=== PATIENT | female | born 1955 | race Caucasian/White ===

== ENCOUNTER → 2020-02-09 13:53 | Outpatient (CLI) | payer MEDICARE, BC, SELFPAY ==
--- NOTE | 2020-02-09 14:01 | CT_ITS ---
PROCEDURE: CT SHOULDER LT WO CON CLINICAL HISTORY: evaluate for humeral head fx COMPARISON: Plain radiographs 02/08/2020 TECHNIQUE: Axial images obtained with sagittal and coronal reformats. 3D reconstruction images were also performed. All CT scans at the facility use one or more dose reduction, viz: automated exposure control, ma/kV adjustment per patient size (including targeted exams where dose is matched to indication, i.e. head), or iterative reconstruction technique. FINDINGS: There is a comminuted fracture of the proximal femur involving the surgical neck and head. There is mild distraction of fracture fragments. There is some inferior and medial displacement of the humeral head fracture fragments. There is intra-articular extension of the fracture. Hemarthrosis is noted. Remaining bony elements are intact. There is no disruption of the acromioclavicular joint. Incidental note is made of a 6 millimeter noncalcified pulmonary nodule in the left mid lung field. At a minimum correlation with current and previous chest x-rays if previous exams exist is recommended. Postcontrast CT of the thorax for additional assessment of the lung zhong should be considered if there are no previous exams available for comparison. IMPRESSION: Comminuted fracture proximal humerus with hemarthrosis. Incidental note of 6 millimeter noncalcified pulmonary nodule left lung field. Neoplasm is not excluded. Follow-up is recommended. Dictated by: Ghulam Rubin 02/09/2020 14:34 Electronically signed by Ghulam Rubin in [place] 02/09/2020 14:34
== END ==
PROVIDERS: PCP Family Medicine; Visit Provider Orthopaedic Surgery
DX: S42.202A Unspecified fracture of upper end of left humerus, initial encounter for closed fracture (principal)
CPT/HCPCS: 73200

== ENCOUNTER 2020-06-07 13:42 | Emergency (ER) | payer MEDICARE, BC, SELFPAY ==
--- NOTE | 2020-06-07 14:33 | HMH.EDUTC ---
[facility] [place] Clinical Impression: Contusion of rib on left side Qualifiers: Encounter type: initial encounter Qualified Code(s): S20.212A - Contusion of left front wall of thorax, initial encounter Osteoporosis Qualifiers: Osteoporosis type: unspecified Presence of current pathological fracture: without current pathological fracture Qualified Code(s): M81.0 - Age-related osteoporosis without current pathological fracture Disposition: Home, Self-Care Condition on Discharge: Good Instructions: DI for Rib Contusion Additional Instructions: F/U with PCP regarding osteoporosis Referrals: PCP,No [Primary Care Provider] - Time of Disposition: 15:24 Medical Decision Making - Sid Inquiry Pt receiving controlled substance: No Vital Signs: 06/07/20 14:34 Temperature 98.2 F Temperature Source Oral Pulse Rate [Right Brachial] 68 Respiratory Rate 20 Blood Pressure [Right Arm] 124/69 Blood Pressure Mean [Right Arm] 87 Blood Pressure Source [Right Arm] Automatic Cuff Blood Pressure Position [Right Arm] Sitting 02 Sat by Pulse Oximetry 100 Oxygen Delivery Method Room Air Orders (Tests/Meds): ORDERS Category Date Time Status XR ribs LT min 3V w CXR1V Stat Exams 06/07/20 14:37 Taken - Radiology Data #1 Image(s): Chest Image Reviewed: Yes I have reviewed radiologist's interpretation Preliminary Findings: Normal/NAD, No Fracture Seen [facility] [place] - General Stated complaint: AO 05/31/17 fell/rib pain Time Seen by Provider: 06/07/20 14:33 - History of Present Illness Provider Complaint: Patient fell on 05/31/20 injuring left side. Has pain and bruising to left elbow, left ribs, left hip and left knee. Had humeral fracture with surgery in February, so ortho evaluated other areas yesterday but stated they did not evaluate ribs. Onset (ago): week(s) (1) Location: chest Radiation: non-radiation Relieving factors: none Exacerbating factors: none Associated symptoms: denies other symptoms Treatments prior to arrival: none - Related Data Home Medications Medication Instructions Recorded Confirmed Levothyroxine Sodium [Synthroid 125 mcg PO DAILY 02/08/20 02/09/20 125mcg (0.125mg) tablet] Previous Rx's Medication Instructions Recorded Ibuprofen [Ibuprofen 600mg Tab] 600 mg PO Q6HP PRN #20 tab 04/02/20 Allergies Allergy/AdvReac Type Severity Reaction Status Date / Time No Known Allergies Allergy Unverified 02/09/20 13:11 [facility] History - Hepatitis A Screen Attestation statement:: This patient has been screened for Hepatitis A risk factors. I have reviewed the patient's past medical history: Yes Other Medical History: Reports: Hypothyroidism Laterality Cases: Bilateral: Other (BL legs over 20 years ago.) Other Surgeries: Yes: Colonoscopy - Social History Smoking Status: Never smoker Alcohol Intake: never Occupational Status: retired Family Hx:: Diabetes ROS Obtained: Yes All systems reviewed & no additional complaints - Respiratory Respiratory: Yes as per HPI, Yes pain on inspiration Physical Exam - General General appearance: alert, in no apparent distress - Head Head exam: atraumatic, normocephalic, normal inspection - Eye Eye exam: Present: normal appearance, PERRL, EOMI - ENT ENT exam: Present: normal exam, normal oropharynx, mucous membranes moist, TM's normal bilaterally, normal external ear exam - Neck Neck exam: Present: normal inspection, full ROM, trachea midline. Absent: meningismus, lymphadenopathy - Chest Chest inspection: Present: normal inspection, symmetric chest wall rise, tenderness (left chest wall) - Respiratory Respiratory exam: Present: normal lung sounds bilaterally. Absent: respiratory distress - Cardiovascular Cardiovascular exam: Present: regular rate, normal rhythm. Absent: JVD - Extremities Exam Extremities exam: Present: normal inspection, full ROM, normal capillary refill, other (bruising left elbow, knee, hip).
[2020-06-07 14:34] VITALS: BP 124/69; PULSE 68; RESP 20; TEMP 36.8; O2SAT 100; BMI 27.0
--- NOTE | 2020-06-07 14:37 | XR_ITS ---
PROCEDURE: XR RIBS LT MIN 3V W CXR1V CLINICAL INDICATION: Left rib pain s/p fall 05/31 COMPARISON: No exams were available for comparison FINDINGS: There is diffuse bony demineralization, which limits the diagnostic sensitivity of the exam. No displaced left rib fracture is identified. There is an old united fracture of the proximal left humerus status post ORIF. The lungs are hyperinflated, compatible with COPD. Diffuse chronic appearing mildly increased interstitial markings are seen in both lungs. There is no demonstrated consolidation or pleural effusion. There is a borderline/mild cardiomegaly. Mildly prominent peripheral pulmonary vascular markings. IMPRESSION: 1.Osteoporosis. No displaced left rib fracture is identified. 2. Possible COPD. Dictated by: Shania Lucas 06/07/2020 15:07 Electronically signed by Shania Lucas in [place] 06/07/2020 15:07
[2020-06-07 15:30] VITALS: BP 124/69; PULSE 68; RESP 20; TEMP 36.8; O2SAT 100
== END 2020-06-07 15:35 | disposition home or self-care (01) ==
PROVIDERS: Emergency Provider Physician Assistant
DX: S20.212A Contusion of left front wall of thorax, initial encounter (principal); W01.0XXA Fall on same level from slipping, tripping and stumbling without subsequent striking against object, initial encounter; Y92.019 Unspecified place in single-family (private) house as the place of occurrence of the external cause; M81.0 Age-related osteoporosis without current pathological fracture; E03.9 Hypothyroidism, unspecified; Z79.899 Other long term (current) drug therapy
CPT/HCPCS: 71101; 99201

== ENCOUNTER 2020-08-26 11:00 | Outpatient (RCR) | payer MEDICARE, BC, SELFPAY | END 2020-08-26 11:05 | disposition home or self-care (01) | LOC: OT 11:00 | PROVIDERS: PCP Family Medicine; Visit Provider Orthopaedic Surgery | DX: S42.202D Unspecified fracture of upper end of left humerus, subsequent encounter for fracture with routine healing (principal) | CPT/HCPCS: 97014; 97110; 97140; 97164; 97166; 97530; G0283 ==

== ENCOUNTER 2021-03-14 12:12 | Emergency (ER) | payer MEDICARE, BC, SELFPAY ==
[2021-03-14 12:40] VITALS: BP 106/73; PULSE 71; RESP 21; TEMP 36.9; O2SAT 100; BMI 25.9
--- NOTE | 2021-03-14 12:40 | HMH.EDUTC ---
[facility] [place] Disposition Clinical Impression: Rib pain on right side Disposition: Home, Self-Care Condition on Discharge: Good Instructions: DI for Rib Fracture Prescriptions: Lidocaine [Lidoderm 5% transdermal patch] 1 each TP Q24H 15 Days #15 adh..patch Transmission Status: Pending to [facility] Naproxen Sodium [Naproxen ER 500mg Tab] 500 mg PO BID 10 Days #30 tab Transmission Status: Pending to [facility] Referrals: Sheyla Angeles [Primary Care Provider] - Time of Disposition: 14:34 Medical Decision Making - Sid Inquiry Pt receiving controlled substance: No Vital Signs: 03/14/21 12:40 Temperature 98.4 F Temperature Source Oral Pulse Rate [Left Brachial] 71 Respiratory Rate 21 Blood Pressure [Left Arm] 106/73 L Blood Pressure Mean [Left Arm] 84 Blood Pressure Source [Left Arm] Automatic Cuff Blood Pressure Position [Left Arm] Sitting 02 Sat by Pulse Oximetry 100 Oxygen Delivery Method Room Air Orders (Tests/Meds): ORDERS Category Date Time Status Acute abdomen XR series [XR acute abdomen series] Stat Exams 03/14/21 12:52 Taken XR ribs RT 2V Stat Exams 03/14/21 12:51 Taken - Radiology Data #1 Image(s): Chest Image Reviewed: Yes I reviewed the patient's radiology image Preliminary Findings: Abnormal (possible non displaced fracture) #2 Image(s): Abdomen Image Reviewed: Yes I reviewed the patient's radiology image Preliminary Findings: Normal/NAD (no free air) [facility] [place] HPI - General Stated complaint: Fell 5 pain on right lower side Time Seen by Provider: 03/14/21 12:40 - History of Present Illness Provider Complaint: Patient was gardening 03/08 when she misstepped and fell on her right side. She states she fell flat onto the ground and did not strike an edge, etc. She hit her head rather hard but did not lose consciousness. Initially, that was her focus. As the week has gone on, she has had persistent pain in her right side. She does not actually recall striking her right side on anything. She has not had bruising or swelling. She denies hematuria. She has had normal bowel movements. Certain movements are painful. It is worse when she lays on her right side. Better if she lays on her left side. Motrin has not eased the pain. Onset (ago): day(s) (6) Location: chest, abdomen Radiation: non-radiation Severity: moderate Severity scale (1-10): 7 Quality: aching, constant Relieving factors: immobilization Exacerbating factors: movement Associated symptoms: denies other symptoms Treatments prior to arrival: NSAID - Related Data Home Medications Medication Instructions Recorded Confirmed Levothyroxine Sodium [Synthroid 125 mcg PO DAILY 02/08/20 03/14/21 125mcg (0.125mg) tablet] Previous Rx's Medication Instructions Recorded Lidocaine [Lidoderm 5% transdermal 1 each TP Q24H 15 Days #15 03/14/21 patch] adh..patch Naproxen Sodium [Naproxen ER 500mg 500 mg PO BID 10 Days #30 tab 03/14/21 Tab] Allergies Allergy/AdvReac Type Severity Reaction Status Date / Time No Known Allergies Allergy Unverified 02/09/20 13:11 [facility] History - Hepatitis A Screen Attestation statement:: This patient has been screened for Hepatitis A risk factors. I have reviewed the patient's past medical history: Yes Other Medical History: Reports: Hypothyroidism Laterality Cases: Bilateral: Other Other Surgeries: Yes: Colonoscopy - Social History Smoking Status: Never smoker Alcohol Intake: never Occupational Status: other Family Hx:: Diabetes ROS Obtained: Yes All systems reviewed & no additional complaints - Gastrointestinal Gastrointestingal: Reports: as per HPI - Musculoskeletal Musculoskeletal: Reports as per HPI Physical Exam - General General appearance: alert, in no apparent distress - Head Head exam: normocephalic - Eye Eye exam: Present: PERRL - ENT ENT exam: Present: normal oropharynx - Neck Neck exam: Present:
--- NOTE | 2021-03-14 12:51 | XR_ITS ---
PROCEDURE: XR RIBS RT 2V CLINICAL INDICATION: fall Posttraumatic pain COMPARISON: Chest x-ray 03/14/2021 FINDINGS: Minimally displaced fracture is noted on the frontal view of the chest not well delineated on the rib detail films likely due to positioning. No other abnormalities are evident. IMPRESSION: Possible right 7th rib fracture Dictated by: Kenyon Moreira MD 03/14/2021 14:34 Kenyon Moreira MD in [place] 03/14/2021 14:34
--- NOTE | 2021-03-14 12:52 | XR_ITS ---
PROCEDURE: XR ACUTE ABDOMEN SERIES CLINICAL INDICATION: fall Posttraumatic pain, right-sided pain COMPARISON: CR XR RIBS RT 2V from 03/14/2021 FINDINGS: A frontal view of the chest shows a minimally offset rib fracture involving the right 7th rib laterally. No evidence of pneumothorax. Prior ORIF left proximal humerus. Upright and supine views of the abdomen shows a nonspecific bowel gas pattern. No intestinal obstruction or free air. Other findings:None. IMPRESSION: Minimally displaced right 7th rib fracture otherwise negative Dictated by: Kenyon Moreira MD 03/14/2021 14:32 Kenyon Moreira MD in [place] 03/14/2021 14:32
[2021-03-14 14:38] VITALS: BP 106/73; PULSE 71; RESP 21; TEMP 36.9; O2SAT 100
== END 2021-03-14 14:40 | disposition home or self-care (01) ==
PROVIDERS: Emergency Provider Physician Assistant; PCP Family Medicine
DX: R07.81 Pleurodynia (principal); W01.0XXA Fall on same level from slipping, tripping and stumbling without subsequent striking against object, initial encounter; Y92.017 Garden or yard in single-family (private) house as the place of occurrence of the external cause; E03.9 Hypothyroidism, unspecified
CPT/HCPCS: G0463; 71100; 74021; 99202

== ENCOUNTER → 2021-05-27 14:07 | Outpatient (POV) | payer MEDICARE, BC, SELFPAY | PROVIDERS: Visit Provider Dermatology | DX: Z00.00 Encounter for general adult medical examination without abnormal findings (principal) ==

== ENCOUNTER 2021-07-20 11:17 | Emergency (ER) | payer MEDICARE, BC, SELFPAY ==
[2021-07-20 11:18] VITALS: BP 115/59; PULSE 82; RESP 18; TEMP 36.8; O2SAT 96; BMI 26.4
--- NOTE | 2021-07-20 11:31 | HMH.EDGENADL ---
ED Disposition Clinical Impression: Diarrhea Qualifiers: Diarrhea type: presumed infectious Qualified Code(s): R19.7 - Diarrhea, unspecified Disposition: Home, Self-Care Condition on Discharge: Fair Instructions: DI for Diarrhea and Traveler's Diarrhea -- Adult, DI for Nausea -- Adult Additional Instructions: Cipro as prescribed. Imodium for diarrhea. Tylenol for any pain or fever. Follow-up with primary care provider if not improved in 2 to 3 days. Rest and drink plenty of fluids. Return to the emergency department if worsening abdominal pain, persistent vomiting, fever over 101 degrees, passing large amounts of blood in stool. Prescriptions: Ciprofloxacin HCl [Cipro 500mg Tab] 500 mg PO BID #20 tab [facility] Loperamide HCl [Loperamide] 2 mg PO TIDP PRN #10 tab PRN Reason: Diarrhea Transmission Status: Pending to [facility] Referrals: Fide Angeles PA [Primary Care Provider] - - Critical Care Critical Care Time: No Attestation: On , the high probability of a clinically significant, sudden or life threatening deterioration of the following system(s) required my full and direct attention, intervention and personal management. The time I documented below is in addition to time spent performing reported procedures but includes the following listed in this critical care notation. Medical Decision Making - Sid Inquiry Pt receiving controlled substance: No (patient refused) Sid was queried for this patient: Yes Risks and benefits of using a controlled substance: were not discussed with pt by me Vital Signs: 07/20/21 11:18 Temperature 98.3 F Temperature Source Oral Pulse Rate [Left Radial] 82 Respiratory Rate 18 Blood Pressure [Left Arm] 115/59 L Blood Pressure Mean [Left Arm] 77 Blood Pressure Source [Left Arm] Automatic Cuff Blood Pressure Position [Left Arm] Supine 02 Sat by Pulse Oximetry 96 Oxygen Delivery Method Room Air - Lab Data Lab Results 07/20/21 11:30: WBC 9.0, RBC 5.25, Hgb 15.9, Hct 47.8 H, MCV 91.0, MCH 30.4, MCHC 33.4, RDW 11.9, Plt Count 286, MPV 7.0 L, Neut % (Auto) 66.6, Lymph % (Auto) 21.0, Storey % (Auto) 10.6 H, Eos % (Auto) 1.2, Baso % (Auto) 0.5, Neut # (Auto) 6.0, Lymph # (Auto) 1.9, Storey # (Auto) 1.0, Eos # (Auto) 0.1, Baso # (Auto) 0.1 07/20/21 11:30: Sodium 137, Potassium 4.0, Chloride 100, Carbon Dioxide 25, Anion Gap 16.0 H, BUN 21 H, Creatinine 0.60, Estimated Creat Clear 74, Estimated GFR 100, Est GFR ( Amer) 121, Glucose 99, Calcium 9.1, Total Bilirubin 1.0, AST 26, ALT 18, Alkaline Phosphatase 119, Total Protein 7.7, Albumin 4.3, Globulin 3.4 H, Albumin/Globulin Ratio 1.3 07/20/21 11:30: SARS-CoV-2 (PCR) Not detected, Influenza A Untype (PCR) Not detected, Influenza Type B (PCR) Not detected 07/20/21 13:34: Stl Aeromonas (PCR) Not detected, Stl C. cayetanensis PCR Not detected, Stool Rotavirus (PCR) Not detected, Stl Adenov F 40/41 PCR Not detected, Stool Astrovirus (PCR) Not detected, Stool Campylobacter PCR Not detected, Stl C.difficile Tox PCR Not detected, Stool Cryptosporidium PCR Not detected, Stl E.coli Shiga Tox PCR Not detected, Stool E coli O157 PCR Not detected, Stl Enterotoxigenic E PCR Not detected, Stool EPEC (PCR) Not detected, Stool EAEC (PCR) Not detected, Stl E. histolytica PCR Not detected, Stool Giardia Lamblia PCR Not detected, Stool Salmonella PCR Not detected, Stool Sapovirus (PCR) Not detected, Stl P. shigelloides PCR Not detected, Stl Shigella/EIEC PCR Not detected, St Y.enterocolitica PCR Not detected, Stool Vibrio (PCR) Not detected, Stl Vibrio cholerae PCR Not detected, Stl Norovirus GI/GII PCR Not detected 07/20/21 13:34: Stool Occult Blood Positive A Result diagrams: 07/20/21 11:30 07/20/21 11:30 Orders (Tests/Meds): ED MEDICATIONS Discontinued Medications Generic Name Dose Route Start Last Admin Trade Name Freq PRN Reason Stop Dose Admin Sodium Chloride 1,000
[2021-07-20 11:40] LABS: Coronavirus 19, PCR Not Detected (NotDetected); Influenza A, PCR Not Detected (NotDetected); Influenza B, PCR Not Detected (NotDetected)
[2021-07-20 11:52] LABS: Basophils # 0.1 K/mm3 (0-0.2); Basophils % 0.5 % (0.1-2.0); Eosinophils # 0.1 K/mm3 (0.0-0.4); Eosinophils % 1.2 % (0.1-12.0); Hematocrit 47.8 % (37.0-47.0); Hemoglobin 15.9 g/dL (12.2-16.2); Lymphocytes # 1.9 K/mm3 (0.7-4.5); Mean Corpuscular HGB Conc 33.4 g/dL (31.8-35.4); Mean Corpuscular Hemoglobin 30.4 pg (27.0-31.2); Monocytes % 10.6 % (1.7-9.3); Neutrophils % 66.6 % (37.0-80.0); Platelet Count 286 K/mm3 (142-424); Red Blood Count 5.25 M/mm3 (4.20-5.40); Red Cell Distribution Width 11.9 % (11.5-17.5)
[2021-07-20 11:54] LABS: Chloride 100 mmol/L (98-107); Sodium 137 mmol/L (136-145)
[2021-07-20 11:57] LABS: Alanine Aminotransferase 18 U/L (12-78); Albumin Level 4.3 g/dl (3.5-5.0); Albumin/Globulin Ratio 1.3 (1.1-1.8); Alkaline Phosphatase 119 U/L (38-126); Aspartate Amino Transferase 26 U/L (14-36); Blood Urea Nitrogen 21 mg/dl (7-17); Carbon Dioxide 25 mmol/L (22.0-30.0); Creatinine Clearance Estimated 74 mL/min (50-200); Estimated Glomerular Filt Rate 100 ml/min (>60); GFR (African American) 121 ML/MIN (>60); Globulin 3.4 g/dL (1.3-3.2); Total Protein,Serum 7.7 g/dl (6.3-8.2)
[2021-07-20 11:58] LABS: Calcium 9.1 mg/dl (8.4-10.2); Glucose 99 mg/dl (74-100)
--- NOTE | 2021-07-20 12:16 | PC.NURSE ---
Pt has refused to have a CT scan. Pt stated to rad It's just diarrhea. I don't want a CT .
[2021-07-20 13:40] LABS: Adenovirus F 40/41, stool Not Detected (NotDetected); Astrovirus Not Detected (NotDetected); Campylobacter Not Detected (NotDetected); Clostridium Difficile A/B, PCR Not Detected (NotDetected); Cryptosporidium Not Detected (NotDetected); Cyclospora Cayetanesis Not Detected (NotDetected); Entamoeba histolytica Not Detected (NotDetected); Enteroaggregative E coli Not Detected (NotDetected); Enteropathogenic E coli Not Detected (NotDetected); Enterotoxigenic E coli Not Detected (NotDetected); Giardia lamblia Not Detected (NotDetected); Norovirus Not Detected (NotDetected); Plesimonas Shigalloides, PCR Not Detected (NotDetected); Rotavirus A Not Detected (NotDetected); Salmonella, PCR Not Detected (NotDetected); Sapovirus Not Detected (NotDetected); Shiga-like toxin E coli Not Detected (NotDetected); Shigella Enterovasive E coli Not Detected (NotDetected); Vibrio Cholerae Not Detected (NotDetected); Vibrio, PCR Not Detected (NotDetected); Yersinia Entercolitica, PCR Not Detected (NotDetected)
--- NOTE | 2021-07-20 13:42 | PC.NURSE ---
diarrhea sample sent to lab.
[2021-07-20 13:49] LABS: Occult Blood,Stool Positive (Negative)
[2021-07-20 16:23] VITALS: BP 128/73; PULSE 93; RESP 16; TEMP 36.9; O2SAT 100
== END 2021-07-20 16:24 | disposition home or self-care (01) ==
PROVIDERS: Emergency Provider Emergency Medicine; PCP Physician Assistant Medical
DX: R19.7 Diarrhea, unspecified (principal); R11.2 Nausea with vomiting, unspecified; E03.9 Hypothyroidism, unspecified; Z20.822 Contact with and (suspected) exposure to COVID-19
CPT/HCPCS: 80053; 82272; 85025; 87506; 96365; 96375; 99283; C9803; G0328; J2405; U0003; U0005

== ENCOUNTER 2025-03-19 09:54 | Day surgery (SDC) | payer MEDICARE, SELFPAY ==
[2025-03-19 10:42] VITALS: BMI 25.1
[2025-03-19 10:52] VITALS: BP 136/68; PULSE 59; RESP 18; TEMP 36.6; O2SAT 100
[2025-03-19] MEDS: LACTATED RINGERS 1000ML 1,000 ML 50 ML IV (10:52)
--- NOTE | 2025-03-19 10:57 | ECG_ITS ---
APPROVED REPORT Exam: Resting ECG HR:58 bpm ECG Measurements Heart Rate 58 AXES KS 170 P 12 QRSd 102 QRS 87 QT 440 T 85 QTc 436 Conclusion SINUS BRADYCARDIA WITH OCCASIONAL SUPRAVENTRICULAR PREMATURE COMPLEXES BORDERLINE ECG UNCONFIRMED REPORT Electronically signed by : Dagoberto Paul MD 03/19/2025 16:48:04
--- NOTE | 2025-03-19 11:00 | SUR.PREOP ---
HR noted as irregular during assessment, EKG obtained per Christelle Mcbride CRNA.
--- NOTE | 2025-03-19 11:27 | EXP.HP ---
History of Present Illness *Admission Date: 03/19/25 *Reason for visit:: Change in bowel habits *History of present illness: Mrs. Pyle is a 69-year-old female who is here for diagnostic colonoscopy secondary to a change in bowel habits. The examination is deemed medically necessary for diagnostic colonoscopy. The patient has been seen, interviewed and examined prior to the procedure by both myself and the anesthesia provider. [facility] Disclaimer: The information contained in this section may have been updated after the patient was seen, as this information can be updated by other users. Medical History (Updated 03/19/25 @ 10:50 by Stacia Singh RN) Osteoporosis History of right shoulder fracture Hypothyroid Surgical History (Updated 03/19/25 @ 10:49 by Stacia Singh RN) History of colonoscopy Social History Smoking Status: Never smoker alcohol intake: never current occupational status: other Travel in the last 8 weeks?: None Have you lived/traveled outside [place] in past 30 days?: No Contact w/someone who lives/traveled outside US past 30 days?: No Exposure to someone with infectious disease in past 14 days?: No Do you have a fever (greater than 100.4 F or 38 C)?: No Have you tested positive for COVID-19?: No Exposed to someone with COVID-19 in past 14 days?: No Do you have a sore throat?: No Do you have a cough?: No Do you have any weakness?: No Do you have any diarrhea?: No Are you experiencing any unusual bleeding?: No Do you have any muscle aches/pain?: No Do you have any abdominal pain?: No Are you experiencing loss of taste or smell?: No Other Medical History Have you received the Flu Vaccine for this season: No Have you received the Pneumonia Vaccine: No Review of Systems Review of Systems Review of systems (narrative): Negative *Cardiovascular Comments: Negative *Gastrointestinal Comments: Negative *Genitourinary Comments: Negative *Musculoskeletal Comments: Negative *Neurologic Comments: Negative Meds Home Medications and Allergies Home Medications ?Medication ?Instructions ?Recorded ?Confirmed ?Type levothyroxine 100 mcg capsule 100 mcg PO DAILY 12/13/24 03/19/25 History New Prescriptions to Start Prescriptions: Allergies Allergy/AdvReac Type Severity Reaction Status Date / Time No Known Allergies Allergy Verified 03/19/25 10:46 Exam Data for Last 24 hours Vital signs and Labs for Last 24 Hours: Temp Pulse Resp BP Pulse Ox O2 Del Method 97.9 F 59 L 18 136/68 100 Room Air 03/19/25 10:52 03/19/25 10:52 03/19/25 10:52 03/19/25 10:52 03/19/25 10:52 03/19/25 10:52 I & O for Last 24 hours: Intake & Output 03/16/25 03/17/25 03/18/25 03/19/25 23:59 23:59 23:59 23:59 Weight 180 lb *Routine HEENT Exam Head: Present normocephalic Eye: Present EOMI and PERRL ENT: Present mucous membranes moist *Routine Neck Exam Neck: Present supple *Routine Respiratory Exam Respiratory: Present CTA bilaterally *Routine Cardiovascular Exam Cardiovascular: Present RRR *Routine Abdominal Exam Abdominal: Present soft and normoactive bowel sounds; Absent tenderness *Routine Rectal Exam Rectal:: deferred *Routine Genitalia Exam Genitalia:: deferred *Routine Extremities Exam Extremities: Absent cyanosis, clubbing or edema *Routine Skin Exam Skin: Present warm; Absent rash *Routine Neurological Exam Neurological: Present alert and oriented X3 Assessment and Plan *Assessment and plan (1) Change in bowel habits: Status: Acute Category: Medical Code(s): R19.4 - Change in bowel habit (2) Constipation: Status: Acute Category: Medical Code(s): K59.00 - Constipation, unspecified (3) Flatulence: Status: Acute Category: Medical Code(s): R14.3 - Flatulence Plan A/P: 1. Change in bowel habits with incomplete defecation/constipation is the preprocedural diagnosis. The patient will be anesthetized/sedated using MAC sedation. The patient has been seen and examined. Cardiac and lung assessment prior to the examination is stable. Proceed with planned diagnostic colonoscopy.
--- NOTE | 2025-03-19 11:39 | P.PCN_ITS ---
[facility] Procedure Note Date: 03/19/25 Time: 11:57 Procedure Note:: Colonoscopy Procedure Report: Colonoscopy with cold snare polypectomy Endoscopist: Wilberto Isbell II, MD Referring physician: Jared Devries MD Date of Procedure: March 19, 2025 Equipment: Olympus 190 variable stiffness pediatric colonoscope Sedation: MAC sedation Indication: Mrs. Pyle is a 69-year-old female who is here for diagnostic colonoscopy secondary to a change in bowel habits. Last fall she developed more obstipation with incomplete defecation. She started skipping days without a bowel movement. She has been taking some [id number] supplements including tart jackson juice capsules, tumeric, calcium and magnesium and stopped these supplements but still did not have improvement of her bowel movements. She reports no abdominal pain, rectal bleeding, weight loss or family history of colon cancer. Her last colonoscopy was 12 or 13 years ago. Procedure: Prior to the procedure, a history and physical exam was performed, and patient's medications and allergies were reviewed. The risks, benefits and alternatives of the sedation and procedure were discussed with the patient. All questions were answered and informed consent was obtained. The patient was brought to the procedure room. Patient identification and proposed procedure were verified by the physician and the nurse. The patient was placed in a left lateral decubitus position and the scope was passed under direct vision. Throughout the procedure, the patient's blood pressure, pulse, and oxygen saturations were monitored continuously. The colonoscopy was accomplished without difficulty. The patient tolerated the procedure well. Findings: On digital rectal examination there was normal rectal tone. There were no external hemorrhoids. The colonoscope was introduced through the anal canal to the rectum and advanced to the cecum. The ileocecal valve and appendiceal orifice were identified. The scope was advanced a short distance into the ileum which appeared grossly normal. The scope was then withdrawn into the colon. There were 2 polyps (ascending x 1 (3 to 4 mm) and rectosigmoid x 1 (6 mm)). Both of these were removed via cold snare polypectomy. The remaining cecum, ascending and transverse colon and mucosa were grossly normal. There were extensively scattered [place] diverticuli throughout the descending and sigmoid colon (LEFT colon). The rectum itself was normal. Upon retroflexion within the rectum there were grade 2 internal hemorrhoids. The preparation was excellent throughout with Waka Preparation Score of 9. The cecal time was 14 minutes. Impression: 1. Colonic polyps x 2 2. Extensive left-sided diverticulosis 3. Grade 2 internal hemorrhoids Plan: I will follow-up the polyp histology and recommend repeat surveillance colonoscopy again in 7 years if the polyps are adenomatous. I would encourage continuation of the fiber bowel regimen (combined MiraLAX plus Citrucel daily) on a long-term daily maintenance basis.
--- NOTE | 2025-03-19 11:39 | EXP.ANES.CKL ---
[facility] Disclaimer: The information contained in this section may have been updated after the patient was seen, as this information can be updated by other users. Medical History (Updated 03/19/25 @ 10:50 by Stacia Singh RN) Osteoporosis History of right shoulder fracture Hypothyroid Surgical History (Updated 03/19/25 @ 10:49 by Stacia Singh RN) History of colonoscopy Social History Smoking Status: Never smoker alcohol intake: never substance use type: denies use current occupational status: other Travel in the last 8 weeks?: None [facility] Anesthesia Checklist Patient Identification Patient Identification: Arm Band Structural Data Admitted From: Home Planned Operative Procedure/s: Colonoscopy Consent for Planned Operative Procedure(s) Verified: Yes Verified Documents: Surgical Consent and History and Physical NPO Status Verified Time NPO: 00:00 Additional verifications Anesthesia Reactions: No Airway Assessment Mallampati Score:: Class II C-Spine Mobility Assessed: Yes TMJ Mobility Assessed: Yes Dentition: Good Dentition Neurological Assessment Level of Consciousness: Awake, Alert and Appropriate Anesthesia Plan Anesthesia Risk discussed: Yes Anesthesia Plan: Verified ASA Class: II Anesthesia Type: MAC
[2025-03-19 11:41] VITALS: O2SAT 100
[2025-03-19 12:00] VITALS: BP 103/57; PULSE 72; RESP 18; TEMP 36.1; O2SAT 98
[2025-03-19 12:10] VITALS: BP 90/64; PULSE 56; RESP 18; O2SAT 98
[2025-03-19 12:20] VITALS: BP 106/46; PULSE 60; RESP 18; O2SAT 98
[2025-03-19 12:30] VITALS: BP 110/68; PULSE 62; RESP 18; O2SAT 98
== END 2025-03-19 12:50 | disposition home or self-care (01) ==
PROVIDERS: PCP Family Medicine; Visit Provider Internal Medicine Gastroenterology
PROC: 0DJD8ZZ Inspection of Lower Intestinal Tract, Via Natural or Artificial Opening Endoscopic (ICD-10-PCS; CPT 45378; principal; 2025-03-19 11:30)
DX: R19.4 Change in bowel habit (principal); K63.5 Polyp of colon; K57.30 Diverticulosis of large intestine without perforation or abscess without bleeding; K64.1 Second degree hemorrhoids
CPT/HCPCS: 45385; 93005; J7120